=== PATIENT | female | born 1990 ===

== ENCOUNTER 2021-06-26 07:53 | Outpatient (CLI) | payer OTHER ==
[2021-06-26 19:24] LABS: SARS-CoV-2 PCR by NAA Not Detected (NotDetected)
== END 2021-06-26 07:54 | disposition home or self-care (01) ==
LOC: CSHLAB 07:53
PROVIDERS: ATTEND Obstetrics & Gynecology
DX: Z20.822 Contact with and (suspected) exposure to COVID-19 (principal)
CPT/HCPCS: U0003; U0005